=== PATIENT | female | born 1985 | race Two or more races ===

== ENCOUNTER → 2020-12-01 | Outpatient (CLI) | payer SELFPAY ==
[~2020-12-01] MED LIST: ASPI-630 PO; DOCU-109 PO; IBUP-1060 PO; OXYC1TAB15 PO; PNV1TABL25 PO
== END ==
LOC: LAB 11:32
PROVIDERS: ATTEND Obstetrics & Gynecology
DX: Z01.812 Encounter for preprocedural laboratory examination (principal); Z20.822 Contact with and (suspected) exposure to COVID-19
CPT/HCPCS: U0003; U0005